=== PATIENT | male | born 1955 | race Caucasian/White ===

== ENCOUNTER 2018-11-19 19:46 | Emergency (ER) | payer MEDICARE, BC ==
[~2018-11-19] VITALS: Ht 175.3 cm; Wt 81.0 kg
[2018-11-19] MEDS ORDERED: phenylephrine 1% (X-tra strg) 15ml nasal spray NS ONE (20:55)
[2018-11-19] MEDS ORDERED: tranexamic acid inj. 1,000 MG in normal saline 100ml IV soln 100 ML IV ONE (20:55)
[2018-11-19] MEDS ORDERED: silver nitrate applicator stick TP ONE (20:55)
[2018-11-19] MEDS ORDERED: LIDOcaine 4% (40 mg/ml) topical solution 50ml TP ONE ×2 (20:55→22:25)
[2018-11-19 21:29] LABS: INR 2.5 INR; PROTHROMBIN TIME 24.3 SECONDS (9.0-12.0)
[2018-11-19] MEDS ORDERED: normal saline 1000ML IV soln IVB ONE (23:45)
[2018-11-19 23:48] VITALS: BP 107/65
--- NOTE | 2018-11-19 23:48 | NUR ---
Pt didn't feel good when he left. Brought back to room for near syncopal event and he is sweaty. Layed down, at side. IV started and 2 L NS initiated. On monitors.
[2018-11-20 00:26] LABS: BASOPHILS % (AUTO) 0.1 % (0-1); EOSINOPHILS # (AUTO) 0.1 X10'3 (0-0.9); EOSINOPHILS % (AUTO) 0.7 % (0-6); HEMATOCRIT 37.5 % (42.0-52.0); HEMOGLOBIN 12.6 g/dl (14.0-17.9); LYMPHOCYTES # (AUTO) 0.8 X10'3 (1.1-4.8); LYMPHOCYTES % (AUTO) 4.8 % (21-51); MEAN CORPUSCULAR HEMOGLOBIN 32.3 PG (27.0-31.0); MEAN CORPUSCULAR HGB CONC 33.7 g/dL (33.0-36.5); MEAN CORPUSCULAR VOLUME 95.9 FL (78-98); MEAN PLATELET VOLUME 6.9 FL (7.4-10.4); MONOCYTES # (AUTO) 0.6 X10'3 (0-0.9); MONOCYTES % (AUTO) 3.8 % (2-12); NEUTROPHILS # (AUTO) 14.2 X10'3 (1.8-7.7); NEUTROPHILS % (AUTO) 90.6 % (42-75); PLATELET COUNT 330 X10'3 (140-440); RED BLOOD COUNT 3.91 X10'6 (4.70-6.10); RED CELL DISTRIBUTION WIDTH 11.9 % (11.5-14.5); WHITE BLOOD COUNT 15.7 X10'3 (4.5-11.0)
[2018-11-20 00:28] LABS: ALANINE AMINOTRANSFERASE 14 U/L (12-78); ALBUMIN 2.9 G/DL (3.4-5.0); ALKALINE PHOSPHATASE 69 IU/L (46-116); ANION GAP 9 (8-16); ASPARTATE AMINO TRANSFERASE 16 U/L (10-37); BILIRUBIN,TOTAL 0.4 MG/DL (0.1-1.0); BLOOD UREA NITROGEN 19 MG/DL (7-18); BUN/CREATININE RATIO 22.1 (5.4-32.0); CALCIUM 7.3 MG/DL (8.5-10.1); CHLORIDE 102 MMOL/L (99-107); CREATININE 0.86 MG/DL (0.60-1.10); GLUCOSE 148 MG/DL (70-104); POTASSIUM 3.3 MMOL/L (3.5-5.1); SODIUM 135 MMOL/L (135-145); TOTAL CARBON DIOXIDE 23.8 MMOL/L (24-32); TOTAL PROTEIN 5.7 G/DL (6.4-8.2); eGFR 89 ML/MIN
[2018-11-20 00:36] LABS: MAGNESIUM 1.7 MG/DL (1.5-2.4); TROPONIN I < 0.04 NG/ML (0.0-0.05)
[2018-11-20 01:17] LABS: TOTAL CELLS COUNTED 100
[2018-11-20 01:18] LABS: PLATELET ESTIMATE NORMAL
[2018-11-20 10:52] LABS: NUCLEATED RED BLOOD CELLS 0 /100WBC (0-0)
== END 2018-11-20 01:32 | disposition home or self-care (01) ==
LOC: ER 19:47
DX: R04.0 Epistaxis (principal); Z86.73 Personal history of transient ischemic attack (TIA), and cerebral infarction without residual deficits
CPT/HCPCS: 30901; 36415; 80053; 82948; 83735; 83880; 84484; 85025; 85610; 93005; 99284; J7030